=== PATIENT | male | born 2005 | race Caucasian/White ===

== ENCOUNTER 2024-10-09 09:41 | Emergency (ER) | payer MEDICAID ==
[~2024-10-09] VITALS: Ht 167.6 cm; Wt 78.0 kg
[2024-10-09 09:51] VITALS: O2SAT 99
[2024-10-09] MEDS ORDERED: METH-653 MT (10:53)
[2024-10-09] MEDS ORDERED: IBUP-2029 MT (10:53)
[2024-10-09 11:03] VITALS: BP 120/72; PULSE 66; RESP 18; TEMP 36.8; O2SAT 99
== END 2024-10-09 11:03 | disposition home or self-care (01) ==
LOC: ER 09:41
DX: S33.5XXA Sprain of ligaments of lumbar spine, initial encounter (principal); W11.XXXA Fall on and from ladder, initial encounter; Y93.89 Activity, other specified; Y92.89 Other specified places as the place of occurrence of the external cause; Y99.8 Other external cause status
CPT/HCPCS: 72100; 99283